=== PATIENT | female | born 1990 | race Caucasian/White ===

== ENCOUNTER 2016-09-09 20:31 | Emergency (ER) | payer SELFPAY ==
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
== END 2016-09-09 21:04 | disposition home or self-care (01) ==
LOC: MADERS 20:31
DX: S00.83XA Contusion of other part of head, initial encounter (principal); Z79.899 Other long term (current) drug therapy; X58.XXXA Exposure to other specified factors, initial encounter
CPT/HCPCS: 99283

== ENCOUNTER 2016-10-20 13:26 | Emergency (ER) | payer SELFPAY ==
[~2016-10-20 13:26] MED LIST: Iopamidol 370 76% 100 ML VIAL ONE; Sodium Chloride 0.9% 1,000 ML BAG ONE
[2016-10-20 14:05] LABS: Bilirubin Negative (Negative); Blood, Urine Negative (Negative); Glucose, Urine (Dipstick) Negative (Negative); Leukocyte Trace (Negative); Nitrite Negative (Negative); Protein, Urine (Dipstick) Negative (Neg-Trace); Urobilinogen 0.2 mg/dL (0.2-1.0)
[2016-10-20 14:07] LABS: Clarity Hazy (Clear); RBC/HPF 0-3 HPF (0-3)
[2016-10-20 14:08] LABS: Bacteria/HPF 1+ HPF (None Seen); Pregnancy Test - Urine (BHCG) NEGATIVE (NEGATIVE); Pregu Control Background? CLEAR/WHITE (CLR/WHITE); Pregu Control Bar Appear? YES (CONTROL BAR)
[2016-10-20] MEDS ORDERED: Ketorolac Tromethamine 30 MG/ML VIAL ONE (14:46)
[2016-10-20 14:58] LABS: Wet Prep Clue Cells Clue Cells Absent (None Seen); Wet Prep Pathologist Review Spermatozoa Absent (None Seen); Wet Prep Spermatozoa 2nd Revie Agree with result (None Seen); Wet Prep Trichomonas Trichomonas Absent (None Seen)
[2016-10-20 14:59] LABS: #Basophils 0.1 thou/uL (0.0-0.2); #Eosinphils 0.1 thou/uL (0.0-0.7); #Lymphocytes 2.2 thou/uL (1.20-3.40); #Monocytes 0.3 thou/uL (0.11-0.59); #Neutrophils 4.2 thou/uL (1.40-6.50); %Basophils 1.3 % (0.0-1.0); %Lymphocytes 32.4 % (21.0-51.0); %Monocytes 3.9 % (0.0-10.0); %Neutrophils 60.4 % (42.0-75.0); Hemoglobin 13.4 g/dL (12.0-16.0); Mean Corpuscular HGB CONC 33.8 g/dL (32.0-36.0); Mean Corpuscular Hemoglobin 28.7 pg (27.0-31.0); Mean Platelet Volume 8.1 fL (7.4-10.4); Platelet Count 281 thou/uL (130-400); RBC Distribution Width 12.7 % (11.5-14.5); Red Blood Cell (RBC) Count 4.67 mill/uL (4.20-5.40); White Blood Cell (WBC) Count 6.9 thou/uL (4.8-10.8)
[2016-10-20 15:14] LABS: ALT (SGPT) 13 U/L (0-55); AST (SGOT) 11 U/L (5-34); Albumin 4.2 g/dL (3.5-5.0); Alkaline Phosphatase 58 U/L (40-150); Anion Gap 15 mmol/L (10-20); BUN (Urea Nitrogen) 11 mg/dL (7.0-18.7); Bilirubin, Total 0.6 mg/dL (0.2-1.2); Calc. Creatinine Clearance 0 mL/min (70-130); Calcium 9.5 mg/dL (7.8-10.44); Carbon Dioxide 25 mmol/L (22-29); Chloride 104 mmol/L (98-107); Estimated GFR-MDRD Greater than 90; Globulin 2.8 g/dL (2.4-3.5); Glucose 90 mg/dL (70-105); Lipase 9 U/L (8-78); Potassium 4.1 mmol/L (3.5-5.1); Sodium 140 mmol/L (136-145)
[2016-10-20] MEDS ORDERED: Morphine Sulfate 2 MG/ML SYRINGE ONE (17:20)
[2016-10-20] MEDS ORDERED: cefTRIAXone\\ROCEPHIN 250 MG VIAL ONE (17:36)
[2016-10-20] MEDS ORDERED: Lidocaine 1% 20 ML MDV ONE (17:36)
--- NOTE | 2016-10-20 17:54 | CT ---
CT ABDOMEN AND PELVIS: 10/20/16 Multiple axial tomograms of the abdomen and pelvis with IV enhancement. Oral contrast was given. HISTORY: Lower abdominal pain. Assess for appendicitis. The lung bases are clear. The liver, spleen, and pancreas are unremarkable. Adrenal glands normal. The kidneys are unremarkabl e. No hydronephrosis. No urinary tract calculus seen. Small bowel loops appear normal. The appendix is seen and is opacified and is unremarkable. No evide nce of appendicitis. The uterus and adnexa appear unremarkable. No free fluid in the pelvis. No anabella opathy. IMPRESSION: No evidence of acute process. POS: [facility]
[2016-10-23 04:53] LABS: Chlamydia by PCR Not Detected (NotDetected); GC by PCR Not Detected (NotDetected)
== END 2016-10-20 18:50 | disposition home or self-care (01) ==
LOC: MADERS 13:26
DX: R10.9 Unspecified abdominal pain (principal)
CPT/HCPCS: 36415; 74177; 80053; 81003; 81015; 81025; 83690; 85025; 87210; 87491; 87591; 96361; 96372; 96374; 96375; J0696; J1885; J2001; J2270; J7050

== ENCOUNTER 2016-11-18 08:19 | Emergency (ER) | payer SELFPAY ==
[2016-11-18] MEDS ORDERED: predniSONE 20 MG TAB ONE (08:41)
[2016-11-18] MEDS ORDERED: Famotidine 20 MG TAB ONE (08:41)
== END 2016-11-18 08:46 | disposition home or self-care (01) ==
LOC: MADERS 08:19
DX: T78.40XA Allergy, unspecified, initial encounter (principal); X58.XXXA Exposure to other specified factors, initial encounter
CPT/HCPCS: 99282; J7506

== ENCOUNTER 2016-11-25 14:17 | Emergency (ER) | payer SELFPAY ==
[2016-11-25 14:54] LABS: #Basophils 0.1 thou/uL (0.0-0.2); #Eosinphils 0.2 thou/uL (0.0-0.7); #Lymphocytes 2.2 thou/uL (1.20-3.40); #Monocytes 0.3 thou/uL (0.11-0.59); #Neutrophils 5.6 thou/uL (1.40-6.50); %Basophils 1.6 % (0.0-1.0); %Lymphocytes 25.9 % (21.0-51.0); %Monocytes 3.4 % (0.0-10.0); %Neutrophils 67.1 % (42.0-75.0); Hemoglobin 13.4 g/dL (12.0-16.0); Mean Corpuscular HGB CONC 32.6 g/dL (32.0-36.0); Mean Corpuscular Hemoglobin 28.3 pg (27.0-31.0); Mean Platelet Volume 7.4 fL (7.4-10.4); Platelet Count 306 thou/uL (130-400); RBC Distribution Width 13.1 % (11.5-14.5); Red Blood Cell (RBC) Count 4.74 mill/uL (4.20-5.40); White Blood Cell (WBC) Count 8.4 thou/uL (4.8-10.8)
[2016-11-25 15:08] LABS: Bilirubin Negative (Negative); Blood, Urine Negative (Negative); Clarity Clear (Clear); Glucose, Urine (Dipstick) Negative (Negative); Leukocyte Negative (Negative); Nitrite Negative (Negative); Protein, Urine (Dipstick) Negative (Neg-Trace); Specific Gravity, Urine 1.015 (1.005-1.030); Urobilinogen 0.2 mg/dL (0.2-1.0)
[2016-11-25 15:09] LABS: ALT (SGPT) 12 U/L (0-55); AST (SGOT) 10 U/L (5-34); Albumin 3.8 g/dL (3.5-5.0); Alkaline Phosphatase 53 U/L (40-150); Anion Gap 9 mmol/L (10-20); BUN (Urea Nitrogen) 11 mg/dL (7.0-18.7); Bilirubin, Total 0.5 mg/dL (0.2-1.2); Calc. Creatinine Clearance 0 mL/min (70-130); Calcium 8.9 mg/dL (7.8-10.44); Carbon Dioxide 28 mmol/L (22-29); Chloride 107 mmol/L (98-107); Estimated GFR-MDRD Greater than 90; Globulin 2.7 g/dL (2.4-3.5); Glucose 100 mg/dL (70-105); Potassium 3.8 mmol/L (3.5-5.1); Protein, Total 6.5 g/dL (6.0-8.3); Sodium 140 mmol/L (136-145)
[2016-11-25 15:11] LABS: Bacteria/HPF Rare-Few HPF (None Seen); RBC/HPF 0-3 HPF (0-3); Squamous Epithelial 0-3 HPF (0-3); WBC/HPF 0-3 HPF (0-3)
[2016-11-25 15:12] LABS: BHCG - Serum NEGATIVE (NEGATIVE); Pregs Control Background? CLEAR/WHITE (CLR/WHITE); Pregs Control Bar Appear? YES (CONTROL BAR)
[2016-11-25 15:12] LABS: Other Microscopic Description C&S SET UP
== END 2016-11-25 15:38 | disposition home or self-care (01) ==
LOC: MADERS 14:17
DX: L29.9 Pruritus, unspecified (principal); S00.86XA Insect bite (nonvenomous) of other part of head, initial encounter; S50.862A Insect bite (nonvenomous) of left forearm, initial encounter; S70.362A Insect bite (nonvenomous), left thigh, initial encounter; L08.9 Local infection of the skin and subcutaneous tissue, unspecified; W57.XXXA Bitten or stung by nonvenomous insect and other nonvenomous arthropods, initial encounter
CPT/HCPCS: 36415; 80053; 81003; 81015; 84703; 85025; 87086; 99283

== ENCOUNTER 2016-11-29 17:57 | Emergency (ER) | payer SELFPAY ==
[2016-11-29] MEDS ORDERED: Ciprofloxacin 500 MG TAB ONE (18:39)
[2016-11-29] MEDS ORDERED: predniSONE 20 MG TAB ONE (18:39)
== END 2016-11-29 18:44 | disposition home or self-care (01) ==
LOC: MADERS 17:57
DX: H66.92 Otitis media, unspecified, left ear (principal); K11.8 Other diseases of salivary glands; R51 Headache; Z79.2 Long term (current) use of antibiotics
CPT/HCPCS: 99283; J7506

== ENCOUNTER 2017-03-08 17:10 | Emergency (ER) | payer SELFPAY ==
[2017-03-08] MEDS ORDERED: Ketorolac Tromethamine 60 MG/2 ML VIAL ONE (17:24)
[2017-03-08 17:32] LABS: Clarity Hazy (Clear)
[2017-03-08 17:33] LABS: Bilirubin Negative (Negative); Blood, Urine Negative (Negative); Glucose, Urine (Dipstick) Negative (Negative); Leukocyte Negative (Negative); Nitrite Negative (Negative); Pregnancy Test - Urine (BHCG) Negative (Negative); Pregu Control Background? CLEAR/WHITE (CLR/WHITE); Pregu Control Bar Appear? YES (CONTROL BAR); Protein, Urine (Dipstick) Negative (Neg-Trace); Specific Gravity 1.015 (1.002-1.036); Specific Gravity, Urine 1.015 (1.005-1.030); pH, Urine 5.5 (5.0-9.0)
== END 2017-03-08 18:35 | disposition home or self-care (01) ==
LOC: MADERS 17:10
DX: R10.30 Lower abdominal pain, unspecified (principal)
CPT/HCPCS: 81003; 81025; 96372; J1885

== ENCOUNTER 2017-03-19 22:27 | Emergency (ER) | payer SELFPAY ==
[~2017-03-19 22:27] MED LIST changes: +Donnatal Elixir 16.2 MG/5 ML UDCUP ONE; -Iopamidol 370 76% 100 ML VIAL ONE; -Sodium Chloride 0.9% 1,000 ML BAG ONE
[2017-03-19] MEDS ORDERED: Aspirin 325 MG TAB ONE (23:15)
[2017-03-19] MEDS ORDERED: Ondansetron HCl/PF 4 MG/2 ML Vial ONE (23:15)
[2017-03-19] MEDS ORDERED: Ketorolac Tromethamine 30 MG/ML VIAL ONE (23:15)
--- NOTE | 2017-03-19 23:21 | RAD ---
PORTABLE CHEST ONE VIEW: 03/19/17 at 11:06 p.m. HISTORY: Chest pain. FINDINGS: Comparison made with exam of 12/17/14. The heart size is normal. The lungs are expanded without focal areas of consolidation, pneumothorax or pleural effusions. IMPRESSION: No acute process. POS: [facility]
[2017-03-19 23:30] LABS: #Basophils 0.1 thou/uL (0.0-0.2); #Eosinphils 0.2 thou/uL (0.0-0.7); #Lymphocytes 2.5 thou/uL (1.20-3.40); #Monocytes 0.4 thou/uL (0.11-0.59); #Neutrophils 5.5 thou/uL (1.40-6.50); %Eosinophils 2.3 % (0.0-10.0); %Lymphocytes 28.4 % (21.0-51.0); %Monocytes 4.7 % (0.0-10.0); %Neutrophils 63.6 % (42.0-75.0); Hemoglobin 13.7 g/dL (12.0-16.0); Mean Corpuscular HGB CONC 34.2 g/dL (32.0-36.0); Mean Corpuscular Hemoglobin 29.1 pg (27.0-31.0); Mean Corpuscular Volume 85.2 fl (81.0-99.0); Mean Platelet Volume 7.9 fL (7.4-10.4); Platelet Count 269 thou/uL (130-400); RBC Distribution Width 12.3 % (11.5-14.5); White Blood Cell (WBC) Count 8.6 thou/uL (4.8-10.8)
[2017-03-19 23:34] LABS: PTT 29.2 SEC (22.9-36.1); Prothrombin Time 13.9 SEC (12.0-14.7)
[2017-03-19 23:45] LABS: ALT (SGPT) 13 U/L (8-55); AST (SGOT) 14 U/L (5-34); Albumin 4.1 g/dL (3.5-5.0); Alkaline Phosphatase 54 U/L (40-150); Anion Gap 15 mmol/L (10-20); BUN (Urea Nitrogen) 10 mg/dL (7.0-18.7); Bilirubin, Total 0.5 mg/dL (0.2-1.2); CK (CPK) 138 U/L (29-168); Calc. Creatinine Clearance 0 mL/min (70-130); Carbon Dioxide 20 mmol/L (22-29); Chloride 110 mmol/L (98-107); Estimated GFR-MDRD Greater than 90; Globulin 3.2 g/dL (2.4-3.5); Glucose 97 mg/dL (70-105); Potassium 3.8 mmol/L (3.5-5.1); Protein, Total 7.3 g/dL (6.0-8.3); Sodium 141 mmol/L (136-145)
[2017-03-19 23:47] LABS: CKMB 1.6 ng/mL (0-6.6); Troponin I Less than 0.010 ng/mL (< 0.028)
[2017-03-20] MEDS ORDERED: Mag-Al Plus 1200 MG/1200 MG/120 MG/30 ML UDCUP ONE (00:39)
[2017-03-20] MEDS ORDERED: Lidocaine Viscous Sol 2% 15 ml UD Cup ONE (00:39)
[2017-03-20] MEDS ORDERED: Donnatal Elixir 16.2 MG/5 ML UDCUP ONE (00:39)
--- NOTE | 2017-03-20 10:29 | CT ---
PRELIMINARY REPORT/[facility]/EMERGENCY AFTER HOURS PROCEDURE: EXAM: CT Head Without Intravenous Contrast CLINICAL HISTORY: 26 years old, female; Pain; Other: Right side body pain TECHNIQUE: Axial computed tomography images of the head/brain without intravenous contrast. EXAM DATE/TIME: Exam ordered 03/19/2017 11:58 PM COMPARISON: No relevant prior studies available. FINDINGS: Brain: Unremarkable. No hemorrhage. No significant white matter disease. No edema. Ventricles: Unremarkable. No ventriculomegaly. Bones/joints: Unremarkable. No acute fracture. Soft tissues: Unremarkable. Sinuses: Unremarkable as visualized. No acute sinusitis. Mastoid air cells: Unremarkable as visualized. No mastoid effusion. IMPRESSION: Normal head/brain CT. Thank you for allowing us to participate in the care of your patient. Dictated and Authenticated by: Jhon Santana MD 03/20/2017 12:30 AM Central Time ([place] \T\ [place]) FINAL REPORT CT HEAD NONCONTRAST: FINDINGS/IMPRESSION: I agree with the above-provided preliminary interpretation provided above. No acute intracranial abnormalities. POS: [facility]
== END 2017-03-20 00:57 | disposition home or self-care (01) ==
LOC: MADERS 22:27
DX: K21.0 Gastro-esophageal reflux disease with esophagitis (principal); F43.0 Acute stress reaction
CPT/HCPCS: 70450; 71010; 80053; 82553; 83880; 84484; 85025; 85610; 85730; 93005; 96374; 96375; J1885; J2405

== ENCOUNTER 2017-04-07 05:18 | Emergency (ER) | payer SELFPAY ==
--- NOTE | 2017-04-07 07:38 | RAD ---
LUMBAR SPINE 3 VIEWS: HISTORY: Low back pain. FINDINGS: There is sacralization of the 5th lumbar segment. Pedicles are intact. Vertebral bodies heights an d alignment are maintained. Superior deviation of the right L2 transverse process may represent an old injury. No acute fracture or dislocation are apparent. IMPRESSION: No acute osseous abnormalities are demonstrated. POS: [facility]
== END 2017-04-07 07:53 | disposition home or self-care (01) ==
LOC: MADERS 05:18
DX: M54.31 Sciatica, right side (principal)
CPT/HCPCS: 72100

== ENCOUNTER 2017-04-17 18:11 | Emergency (ER) | payer MEDICAID, SELFPAY ==
--- NOTE | 2017-04-17 19:00 | RAD ---
RIGHT WRIST THREE VIEW 04/17/17 HISTORY: Pain. COMPARISON: None. FINDINGS: No acute fracture or malalignment. No radiopaque foreign object. IMPRESSION: No acute fracture or malalignment. POS: [facility]
== END 2017-04-17 19:55 | disposition home or self-care (01) ==
LOC: MADERS 18:11
DX: M77.9 Enthesopathy, unspecified (principal)

== ENCOUNTER 2017-05-10 21:12 | Emergency (ER) | payer MEDICAID ==
[~2017-05-10 21:12] MED LIST changes: +Sodium Chloride 0.9% 100 ML BAG ONE
--- NOTE | 2017-05-10 22:10 | RAD ---
SINGLE VIEW OF THE CHEST: Comparison: 03-19-17 History: Chest pain. FINDINGS: Single view of the chest shows a normal sized cardiomediastinal silhouette. There is no evidence of consolidation, mass, or pleural effusion. The bones are unremarkable. IMPRESSION: No evidence of acute cardiopulmonary disease. POS: [facility]
[2017-05-10] MEDS ORDERED: Pantoprazole 40 MG VIAL ONE (22:29)
[2017-05-10] MEDS ORDERED: Lidocaine Viscous Sol 2% 15 ml UD Cup ONE (22:29)
[2017-05-10] MEDS ORDERED: Donnatal Elixir 16.2 MG/5 ML UDCUP ONE (22:29)
[2017-05-10] MEDS ORDERED: Mag-Al Plus 1200 MG/1200 MG/120 MG/30 ML UDCUP ONE (22:29)
== END 2017-05-11 00:04 | disposition home or self-care (01) ==
LOC: MADERS 21:12
DX: K21.0 Gastro-esophageal reflux disease with esophagitis (principal)
CPT/HCPCS: 71010; 93005; 96365; C9113; J7050

== ENCOUNTER 2017-07-05 14:36 | Emergency (ER) | payer MEDICAID, SELFPAY ==
[2017-07-05 15:15] LABS: Bilirubin Negative (Negative); Blood, Urine Large (Negative); Clarity Clear (Clear); Glucose, Urine (Dipstick) Negative (Negative); Leukocyte Negative (Negative); Nitrite Negative (Negative); Protein, Urine (Dipstick) Negative (Neg-Trace); Urobilinogen 0.2 mg/dL (0.2-1.0); pH, Urine 5.5 (5.0-9.0)
[2017-07-05 15:27] LABS: Pregnancy Test - Urine (BHCG) Negative (Negative); Pregu Control Background? CLEAR/WHITE (CLR/WHITE); Pregu Control Bar Appear? YES (CONTROL BAR)
[2017-07-05 15:30] LABS: ALT (SGPT) 10 U/L (8-55); AST (SGOT) 9 U/L (5-34); Albumin 4.1 g/dL (3.5-5.0); Alkaline Phosphatase 62 U/L (40-150); Anion Gap 16 mmol/L (10-20); BUN (Urea Nitrogen) 9 mg/dL (7.0-18.7); Bilirubin, Total 0.4 mg/dL (0.2-1.2); Calc. Creatinine Clearance 0 mL/min (70-130); Calcium 9.2 mg/dL (7.8-10.44); Carbon Dioxide 21 mmol/L (22-29); Chloride 108 mmol/L (98-107); Estimated GFR-MDRD Greater than 90; Globulin 3.3 g/dL (2.4-3.5); Glucose 103 mg/dL (70-105); Potassium 3.8 mmol/L (3.5-5.1); Protein, Total 7.4 g/dL (6.0-8.3); Sodium 141 mmol/L (136-145)
[2017-07-05 15:32] LABS: Bacteria/HPF Rare-Few HPF (None Seen); RBC/HPF 0-3 HPF (0-3); WBC/HPF 0-3 HPF (0-3)
[2017-07-05 15:52] LABS: #Basophils 0.1 thou/uL (0.0-0.2); #Eosinphils 0.2 thou/uL (0.0-0.7); #Lymphocytes 2.4 thou/uL (1.20-3.40); #Monocytes 0.3 thou/uL (0.11-0.59); #Neutrophils 3.8 thou/uL (1.40-6.50); %Basophils 1.4 % (0.0-1.0); %Eosinophils 3.4 % (0.0-10.0); %Lymphocytes 35.3 % (21.0-51.0); %Monocytes 4.7 % (0.0-10.0); %Neutrophils 55.2 % (42.0-75.0); Hemoglobin 13.7 g/dL (12.0-16.0); Mean Corpuscular HGB CONC 32.4 g/dL (32.0-36.0); Mean Corpuscular Hemoglobin 28.8 pg (27.0-31.0); Mean Platelet Volume 6.9 fL (7.4-10.4); Platelet Count 306 thou/uL (130-400); RBC Distribution Width 12.4 % (11.5-14.5); Red Blood Cell (RBC) Count 4.76 mill/uL (4.20-5.40); White Blood Cell (WBC) Count 6.9 thou/uL (4.8-10.8)
[2017-07-05 15:55] LABS: BHCG - Serum Negative (NEGATIVE); Pregs Control Background? CLEAR/WHITE (CLR/WHITE); Pregs Control Bar Appear? YES (CONTROL BAR)
== END 2017-07-05 16:15 | disposition home or self-care (01) ==
LOC: MADERS 14:36
DX: R53.1 Weakness (principal)
CPT/HCPCS: 36415; 80053; 81003; 81015; 81025; 84443; 84703; 85025; 99284

== ENCOUNTER 2017-09-15 08:58 | Outpatient (CLI) | payer OTHER ==
--- NOTE | 2017-09-15 11:22 | ULT ---
GALLBLADDER ULTRASOUND: CLINICAL HISTORY: Progressive right upper quadrant pain. COMPARISON: Reference is made to 08/20/13 exam. FINDINGS: No focal hepatic lesion visualized. There is no shadowing cholelithiasis. Horton's sign is reported as positive by the plant operator helper. Common duct is normal at 4 mm. Gallbladder is within normal limits of size at 2 mm. No ascites. IMPRESSION: 1. Positive Horton's sign. No cholelithiasis. Correlate clinically. 2. Limited visualization of the liver due to persistent areas of shadowing from bowel. POS: [facility]
== END 2017-09-15 08:59 | disposition home or self-care (01) ==
LOC: MADULT 08:58
PROVIDERS: ATTEND Family Medicine
DX: R10.11 Right upper quadrant pain (principal); R19.8 Other specified symptoms and signs involving the digestive system and abdomen
CPT/HCPCS: 76705

== ENCOUNTER 2019-05-02 20:47 | Emergency (ER) | payer OTHER ==
[2019-05-02] MEDS ORDERED: predniSONE 20 MG TAB ONE (21:18)
== END 2019-05-02 21:23 | disposition home or self-care (01) ==
LOC: MADERS 20:47
DX: R22.0 Localized swelling, mass and lump, head (principal)
CPT/HCPCS: 99283; J7512